=== PATIENT | male | born 1995 | race Caucasian/White ===

== ENCOUNTER 2022-01-13 14:49 | Emergency (ER) | payer SELFPAY ==
[~2022-01-13] VITALS: Ht 177.8 cm; Wt 65.8 kg
[2022-01-13] MEDS ORDERED: IBUP800T27 PO (15:51)
[2022-01-13 16:12] VITALS: BP 153/87
== END 2022-01-13 16:29 | disposition home or self-care (01) ==
LOC: ER 14:49
DX: S46.911A Strain of unspecified muscle, fascia and tendon at shoulder and upper arm level, right arm, initial encounter (principal); F17.210 Nicotine dependence, cigarettes, uncomplicated; F12.10 Cannabis abuse, uncomplicated; Z88.1 Allergy status to other antibiotic agents; W19.XXXA Unspecified fall, initial encounter; Y93.89 Activity, other specified; Y92.89 Other specified places as the place of occurrence of the external cause; Y99.8 Other external cause status
CPT/HCPCS: 73030